=== PATIENT | male | born 1985 | race African-American/Black ===

== ENCOUNTER 2016-12-31 05:14 | Emergency (ER) | payer MEDICAID ==
[2016-12-31 06:02] LABS: BASOPHILS 0.1 % (0-2); EOSINOPHILS 0.2 % (0-7); HEMATOCRIT 43.9 % (42.0-54.0); HEMOGLOBIN 15.4 g/dL (13.5-17.5); IMMATURE GRANULOCYTES 0.2 % (0-5); LYMPHOCYTES 13.4 % (15-50); MCH 29.7 pg (26.0-34.0); MCHC 35.1 g/dL (31.0-37.0); MCV 84.6 fL (80.0-100.0); MEAN PLATELET VOLUME 11.2 fL (7.4-10.4); MONOCYTES 10.1 % (2-11); PLATELET COUNT 172 10x3/uL (130-400); RBC 5.19 10x6/uL (4.20-6.10); RDW 12.6 % (11.5-14.5)
[2016-12-31 06:27] LABS: ALBUMIN 3.8 g/dL (3.4-5.0); ANION GAP 10.6 mmol/L (8-16); BILIRUBIN - TOTAL 0.38 mg/dL (0.2-1.3); CALCIUM 9.5 mg/dL (8.5-10.1); CARBON DIOXIDE 27.1 mmol/L (21.0-32.0); CREATININE - SERUM 1.2 mg/dL (0.6-1.3); POTASSIUM - SERUM 3.7 mmol/L (3.5-5.1); PROTEIN - SERUM 6.8 g/dL (6.4-8.2)
== END 2016-12-31 06:55 | disposition home or self-care (01) ==
LOC: D.ER 05:14
PROVIDERS: Emergency Medicine
DX: F31.9 Bipolar disorder, unspecified (principal); F17.200 Nicotine dependence, unspecified, uncomplicated